=== PATIENT | female | born 2000 | race Caucasian/White ===

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

== ENCOUNTER 2022-05-05 01:30 | Emergency (ER) | payer MEDICAID, OTHER ==
[~2022-05-05] VITALS: Ht 170.2 cm; Wt 133.9 kg
[~2022-05-05 01:30] MED LIST changes: -DICY10CA88 PO
[2022-05-05 01:36] VITALS: BP 163/115
[2022-05-05 02:15] LABS: URINE HCG NEGATIVE (NEG)
[2022-05-05 02:23] LABS: ALANINE AMINOTRANSFERASE 25 U/L (12-78); ALBUMIN 3.9 G/DL (3.4-5.0); ALBUMIN/GLOBULIN RATIO 1.1 (1.1-1.5); ALKALINE PHOSPHATASE 48 IU/L (46-116); ANION GAP 13 (8-16); ASPARTATE AMINO TRANSFERASE 16 U/L (10-37); BILIRUBIN,TOTAL 0.5 MG/DL (0.1-1.0); BLOOD UREA NITROGEN 10 MG/DL (7-18); CHLORIDE 104 MMOL/L (99-107); CREATININE 0.91 MG/DL (0.40-0.90); GLUCOSE 103 MG/DL (70-104); LIPASE 109 U/L (73-393); POTASSIUM 3.5 MMOL/L (3.5-5.1); SODIUM 142 MMOL/L (135-145); TOTAL CARBON DIOXIDE 24.8 MMOL/L (24-32); TOTAL PROTEIN 7.4 G/DL (6.4-8.2); eGFR 77 ML/MIN
[2022-05-05 02:24] LABS: BASOPHILS % (AUTO) 0.4 % (0-1); EOSINOPHILS # (AUTO) 0.1 X10'3 (0-0.9); EOSINOPHILS % (AUTO) 0.8 % (0-6); HEMATOCRIT 41.2 % (35.0-45.0); HEMOGLOBIN 13.9 g/dl (12.0-16.0); LYMPHOCYTES # (AUTO) 2.9 X10'3 (1.1-4.8); LYMPHOCYTES % (AUTO) 38.3 % (21-51); MEAN CORPUSCULAR HEMOGLOBIN 27.9 PG (27.0-31.0); MEAN CORPUSCULAR HGB CONC 33.6 g/dL (33.0-36.5); MEAN CORPUSCULAR VOLUME 82.9 FL (78-98); MEAN PLATELET VOLUME 11.3 FL (7.4-10.4); MONOCYTES # (AUTO) 0.6 X10'3 (0-0.9); MONOCYTES % (AUTO) 7.8 % (2-12); NEUTROPHILS # (AUTO) 3.9 X10'3 (1.8-7.7); NEUTROPHILS % (AUTO) 52.7 % (42-75); PLATELET COUNT 218 X10'3 (140-440); RED BLOOD COUNT 4.97 X10'6 (4.20-5.60); RED CELL DISTRIBUTION WIDTH 14.9 % (11.5-14.5); WHITE BLOOD COUNT 7.5 X10'3 (4.5-11.0)
[2022-05-05] MEDS ORDERED: ketorolac trometh. 30mg/ml inj. IV ONE (02:55)
[2022-05-05] MEDS ORDERED: orphenadrine citrate 60mg/2ml inj. IM ONE (02:55)
[2022-05-05] MEDS ORDERED: ondansetron/PF 4mg/2ml inj IV ONE (02:55)
[2022-05-05] MEDS ORDERED: normal saline 1000ml 1,000 ML IV ONE (03:10)
[2022-05-05 04:48] LABS: CLARITY,URINE SLIGHTLY CLOUDY (Clear); GLUCOSE, URINE NEGATIVE (Neg); KETONES,URINE 15 mg/dl (Neg); LEUKOCYTE ESTERASE ,URINE NEGATIVE (Neg); OCCULT BLOOD,URINE LARGE (Neg); PROTEIN,URINE 100 mg/dl (Neg); UROBILINOGEN,URINE 0.2 E.U/dL (0.2-1.0)
[2022-05-05 04:52] LABS: UA COLLECTION TYPE URINAL
[2022-05-05 04:53] LABS: COLOR,URINE DARK YELLOW (Yellow)
[2022-05-05 04:56] LABS: NITRITES, URINE NEGATIVE (Neg)
[2022-05-05 04:57] LABS: BACTERIA,URINE FEW /HPF (Neg); RBC,URINE TNTC /HPF (0-2); SQUAMOUS EPITHELIAL CELL,UR MODERATE /LPF (FEW); WBC,URINE 0-4 /HPF (0-4)
[2022-05-05] MEDS ORDERED: TRAM50TA2 PO (05:16)
[2022-05-05] MEDS ORDERED: CYCL-1 PO (05:16)
== END 2022-05-05 05:45 | disposition home or self-care (01) ==
LOC: ER 01:31
DX: M54.59 Other low back pain (principal); R11.2 Nausea with vomiting, unspecified; Z79.899 Other long term (current) drug therapy
CPT/HCPCS: 80053; 81001; 81025; 83690; 85025; 96372; 96374; 96375; 99284; J1885; J2360; J2405; J7030

== ENCOUNTER 2022-06-20 23:58 | Emergency (ER) | payer MEDICAID ==
[~2022-06-20] VITALS: Ht 170.2 cm; Wt 90.9 kg
[~2022-06-20 23:58] MED LIST changes: +CYCL-1 PO
[2022-06-21 00:22] VITALS: BP 158/110
[2022-06-21] MEDS ORDERED: ketorolac trometh. 30mg/ml inj. IM ONE (00:50)
[2022-06-21] MEDS ORDERED: ondansetron 4mg rapidly disintigrating tab PO ONE (00:50)
--- NOTE | 2022-06-21 01:01 | NUR ---
po med given im given
--- NOTE | 2022-06-21 01:43 | NUR ---
blood sent to lab
[2022-06-21] MEDS ORDERED: acetaminophen 325mg tablet PO ONE ×2 (02:30)
[2022-06-21] MEDS ORDERED: LIDO700A32 TOP (02:32)
[2022-06-21] MEDS ORDERED: LIDOcaine 5% patch TP SCH (02:35)
--- NOTE | 2022-06-21 02:45 | NUR ---
po med given topical applied
== END 2022-06-21 02:46 | disposition home or self-care (01) ==
LOC: ER 23:59
DX: M54.59 Other low back pain (principal); R11.2 Nausea with vomiting, unspecified; Z79.899 Other long term (current) drug therapy; Z79.2 Long term (current) use of antibiotics
CPT/HCPCS: 96372; 99284; J1885